=== PATIENT | female | born 1965 | race Caucasian/White ===

== ENCOUNTER 2019-02-06 20:33 | Inpatient (IN) | payer OTHER ==
[~2019-02-06] VITALS: Ht 160 cm; Wt 59.9 kg
[2019-02-06 21:32] LABS: CHLORIDE 102 mEq/L (98-107)
[2019-02-06 21:42] LABS: BASOPHILS % 0.3 % (0.0-2.0); EOSINOPHILS % 0.8 % (0.0-5.0); HEMATOCRIT. 39.4 % (36.0-48.0); HEMOGLOBIN. 13.9 g/dL (12.0-16.0); LYMPHOCYTES % 45.3 % (20.0-50.0); MEAN CORPUSCULAR HEMOGLOBIN 31.4 pg (28.0-32.0); MEAN PLATELET VOLUME 7.1 fl (7.4-10.4); NEUTROPHILS % 48.6 % (40.0-76.0); PLATELET 283 x1000/uL (130-400); RED BLOOD CELL COUNT 4.42 mill/uL (4.2-5.4); RED CELL DISTRIBUTION WIDTH 13.4 % (11.6-14.6)
[2019-02-07] MEDS: MORPHINE SULFATE 2 MG/ML CPJ (NOT FOR IM USE) IV PRN ×2 (05:05→17:57)
[2019-02-07 05:30] VITALS: BP 154/77
[2019-02-07] MEDS ORDERED: METF-816 PO (05:55)
[2019-02-07] MEDS ORDERED: GLIP5TAB12 PO (05:55)
[2019-02-07] MEDS ORDERED: ASPI-1393 PO (05:56)
[2019-02-07] MEDS ORDERED: DEXTROSE 50% WATER 50ML SYRINGE IV PRN (07:15)
[2019-02-07 08:00] VITALS: BP 138/69
[2019-02-07] MEDS: BLOOD SUGAR DIAGNOSTIC STRIP TEST SCH ×4 (08:10→21:52)
[2019-02-07] MEDS: GLIPIZIDE 5MG TABLET PO SCH ×2 (08:42→16:05)
[2019-02-07] MEDS: METFORMIN HCL 500MG TABLET PO SCH ×2 (08:42→17:52)
[2019-02-07] MEDS: INSULIN LISPRO 100 UNITS/ML SUBCUT SCH ×4 (08:57→21:00)
[2019-02-07] MEDS ORDERED: ENOXAPARIN 40MG/0.4ML SYR SUBCUT SCH (09:00)
[2019-02-07] MEDS ORDERED: ASPIRIN 325MG EC TABLET PO SCH (09:00)
[2019-02-07] MEDS ORDERED: METFORMIN HCL 1000 MG PO SCH (09:00)
[2019-02-07 12:00] VITALS: BP 137/68
[2019-02-07 13:06] LABS: CHLORIDE 105 mEq/L (98-107)
[2019-02-07 13:19] LABS: LDL CHOLESTEROL 103 mg/dL (5-100)
[2019-02-07 13:22] LABS: HDL CHOLESTEROL 33 mg/dL (40-59)
[2019-02-07] MEDS: NITROGLYCERIN OINT 1GM/INCH UDPKT TD SCH ×2 (13:22→22:05)
[2019-02-07] MEDS ORDERED: REGADENOSON 0.4 MG/5 ML IV NR (13:30)
[2019-02-07 15:15] LABS: CLARITY URINE CLEAR (CLEAR); COLOR URINE YELLOW (YELLOW); KETONES URINE NEGATIVE (NEGATIVE); LEUKOCYTE ESTERASE URINE NEGATIVE (NEGATIVE); NITRITE URINE NEGATIVE (NEGATIVE); OCCULT BLOOD URINE NEGATIVE (NEGATIVE); PH URINE 7.5 (4.5-8.0); PROTEIN URINE NEGATIVE (NEGATIVE); SPECIFIC GRAVITY URINE 1.007 (1.005-1.030); UROBILINOGEN URINE 0.2 E.U./dL (0.2-1.0)
[2019-02-07 15:58] LABS: *COCAINE SCREEN URINE NEGATIVE (NEGATIVE)
[2019-02-07 15:59] LABS: *AMPHETAMINES SCREEN URINE NEGATIVE (NEGATIVE); *BARBITURATES SCREEN URINE NEGATIVE (NEGATIVE); CANNABINOID URINE SCREEN NEGATIVE (NEGATIVE); METHADONE URINE SCREEN NEGATIVE (NEGATIVE); OPIATES URINE SCREEN PRESUMTIVE POSITIVE (NEGATIVE); PHENCYCLIDINE URINE SCREEN NEGATIVE (NEGATIVE)
[2019-02-07 16:00] VITALS: BP 105/62
[2019-02-07 16:00] LABS: *BENZODIAZEPINES SCREEN URINE NEGATIVE (NEGATIVE)
[2019-02-07] MEDS ORDERED: FENOFIBRATE NANOCRYSTALLIZED 145MG TABLET PO SCH (16:00)
[2019-02-07 20:00] VITALS: BP 116/64
[2019-02-07] MEDS ORDERED: ATORVASTATIN CALCIUM 10MG TABLET PO SCH (21:00)
[2019-02-07] MEDS ORDERED: METOPROLOL TARTRATE 25MG TABLET PO SCH (21:00)
[2019-02-08] VITALS: BP 109/72
[2019-02-08 04:20] VITALS: BP 99/62
[2019-02-08] MEDS: NITROGLYCERIN OINT 1GM/INCH UDPKT TD SCH (05:31)
[2019-02-08] MEDS: BLOOD SUGAR DIAGNOSTIC STRIP TEST SCH (06:00)
[2019-02-08 07:53] LABS: BASOPHILS % 0.3 % (0.0-2.0); EOSINOPHILS % 0.8 % (0.0-5.0); HEMOGLOBIN. 13.4 g/dL (12.0-16.0); LYMPHOCYTES % 32.6 % (20.0-50.0); MEAN CORPUSCULAR HEMOGLOBIN 31.4 pg (28.0-32.0); MEAN CORPUSCULAR VOLUME 88.9 fL (81.0-99.0); MEAN PLATELET VOLUME 7.2 fl (7.4-10.4); MONOCYTES % 5.8 % (2.0-8.0); NEUTROPHILS % 60.5 % (40.0-76.0); PLATELET 272 x1000/uL (130-400); RED BLOOD CELL COUNT 4.28 mill/uL (4.2-5.4); RED CELL DISTRIBUTION WIDTH 13.6 % (11.6-14.6)
[2019-02-08 08:00] VITALS: BP 96/63
[2019-02-08 08:10] LABS: CHLORIDE 104 mEq/L (98-107)
[2019-02-08] MEDS ORDERED: AMLODIPINE 2.5MG TABLET PO SCH (09:00)
[2019-02-08] MEDS ORDERED: REGADENOSON 0.4 MG/5 ML IV ONE (11:05)
[2019-02-08 13:43] VITALS: BP 105/85
== END 2019-02-08 14:51 | disposition home or self-care (01) | DRG 311 ==
LOC: ER 20:33 → 6WST 02-07 01:03 → EDBEDREQTM 02-07 01:07 → EDBEDREQ 02-07 01:07 → EDBEDREQDT 02-07 01:07 → ENRESERV 02-07 04:37
PROVIDERS: ADMIT Internal Medicine; ATTEND Internal Medicine
DX: I20.0 Unstable angina (principal); E11.9 Type 2 diabetes mellitus without complications; E78.5 Hyperlipidemia, unspecified; E87.6 Hypokalemia; I10 Essential (primary) hypertension; Z79.899 Other long term (current) drug therapy; Z82.3 Family history of stroke; Z83.3 Family history of diabetes mellitus; Z88.8 Allergy status to other drugs, medicaments and biological substances
CPT/HCPCS: 36415; 71045; 78452; 80048; 80061; 80305; 82962; 83036; 83880; 84443; 84484; 93005; 93017; 93306; 99285; A9500; J1650; J1815; J2270; J2785

== ENCOUNTER 2022-10-13 12:07 | Emergency (ER) | payer SELFPAY ==
[~2022-10-13] VITALS: Ht 157.5 cm; Wt 58.0 kg
[~2022-10-13 12:07] MED LIST: ASPI-1497 PO; GLIP5TAB12 PO; METF-874 PO
[2022-10-13 14:23] VITALS: BP 131/76
== END 2022-10-13 14:32 | disposition home or self-care (01) ==
LOC: ER 12:07
DX: S60.221A Contusion of right hand, initial encounter (principal); I10 Essential (primary) hypertension; E11.9 Type 2 diabetes mellitus without complications; W18.30XA Fall on same level, unspecified, initial encounter; Y93.89 Activity, other specified; Y92.89 Other specified places as the place of occurrence of the external cause; Y99.8 Other external cause status
CPT/HCPCS: 73130; 99283